=== PATIENT | female | born 1990 | race Two or more races ===

== ENCOUNTER 2020-08-18 09:46 | Emergency (ER) | payer OTHER ==
[~2020-08-18] VITALS: Ht 167.6 cm; Wt 61.9 kg
[2020-08-18 09:50] VITALS: BP 119/73
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
[2020-08-18] MEDS ORDERED: KETOROLAC 30 MG/1 ML ONE (10:59)
[2020-08-18] MEDS ORDERED: KETOROLAC 30 MG/1 ML IM ONE (11:00)
[2020-08-18] MEDS ORDERED: ACETAMINOPHEN 325 MG TABLET PO ONE (11:00)
[2020-08-18] MEDS ORDERED: ACETAMINOPHEN 325 MG TABLET ONE (11:09)
--- NOTE | 2020-08-18 11:11 | NUR ---
medicated per emar for pain at 8 exam remain unremarkable
--- NOTE | 2020-08-18 11:56 | NUR ---
reviewed poc/ sxs to watch for/how to follow up. teach back successful
== END 2020-08-18 11:58 | disposition home or self-care (01) ==
LOC: ED 11:45
DX: S22.051A Stable burst fracture of T5-T6 vertebra, initial encounter for closed fracture (principal); V49.49XA Driver injured in collision with other motor vehicles in traffic accident, initial encounter; Y93.89 Activity, other specified; Y92.410 Unspecified street and highway as the place of occurrence of the external cause; Y99.8 Other external cause status
CPT/HCPCS: 71046; 72072; 93005; 96372; 99284; J1885